=== PATIENT | male | born 1945 | race Caucasian/White ===

== ENCOUNTER 2018-03-10 10:23 | Outpatient (CLI) | payer MEDICARE ==
--- NOTE | 2018-03-10 11:55 | RAD ---
CERVICAL SPINE 5 VIEWS: HISTORY: Neck pain. FINDINGS: Operative fixation at the C5-6-7 levels. Anterior plate at the C6-7 level. Interbody fusion materia l markers are within the confines of the disk space. Straightening of the normal lordotic curvature. No abnormal translational motion upon flexion or extension. Vertebral body height and alignment ar e maintained. No acute fracture or dislocation. Prominent calcification over the carotid bifurcatio ns. IMPRESSION: 1. Postoperative changes lower cervical spine. No evidence of hardware complication. 2. Atherosclerosis. POS: [facility]
--- NOTE | 2018-03-10 12:34 | CT ---
HEAD CT WITHOUT CONTRAST: HISTORY: Headache. COMPARISON: 03/19/2015 FINDINGS: No parenchymal hemorrhage. No extraaxial hematoma. No midline shift. Basilar cisterns are patent. Brain volume is age appropriate. Cortical charles white matter differential is preserved. The ventricles and sulci are patent and symmetric. Adequate aeration of the sinuses and mastoid air cells. The calvarium is intact. IMPRESSION: No acute intracranial process. POS: [facility]
--- NOTE | 2018-03-10 12:48 | MRI ---
MRI CERVICAL SPINE: 03/10/2018 HISTORY: Headache for at least a year. History of prior cervical spine surgery. COMPARISON: 07/24/2013 FINDINGS: Metallic susceptibility artifact is seen anteriorly, at the C6-C7 level, related to anterior plate an d screws transfixing this level, as well as an intradiscal prosthesis, which was noted on radiographs of the cervical spine also obtained on this date. There is evidence of fusion of the C5 and C6 vert ebral bodies. There is mild heterogeneity of the bone marrow. The visualized base of the brain and the cervicomedullary junction have a normal MRI appearance. C2-C3: There is no disk bulge or disk herniation. The central spinal canal and neural foramina are patent. C3-C4: There are left facet hypertrophic changes. There is left-sided uncinate process hypertrophy. As noted on the prior exam, there is severe narrowing of the left neural foramen. The right neural foramen and central spinal canal are patent. C4-C5: There is again a mild broad-based disk osteophyte complex, greater centrally, which narrows t he ventral subarachnoid space and does result in slight flattening of the anterior central aspect of the spinal cord, but there is normal signal intensity present in the spinal cord. Facet degenerative changes are present, greater on the left. The right neural foramen is patent, but there is moderate left-sided neural foraminal narrowing present. C5-C6: There is posterior osteophyte formation, greater centrally, which narrows the ventral subarac hnoid space, resulting in slight mass effect on the central anterior aspect of the spinal cord. Ther e is mild right-sided neural foraminal narrowing. The left neural foramen is patent. C6-C7: There is posterior osteophyte formation, greater centrally, which results in overall generali zed narrowing of the central spinal canal, with a greater degree of narrowing involving the ventral s ubarachnoid space and mild mass effect on the anterior aspect of the spinal cord. There is mild incr eased T2 weighted signal intensity seen involving the right lateral aspect of the spinal cord, recording studio intern ior to the C6 vertebral body, which is likely attributable to myelomalacia. There is mild bilateral neural foraminal narrowing. C7-T1: There is a mild broad-based disk osteophyte complex, which results in narrowing of the ventra l subarachnoid space. There is no significant narrowing of either neural foramen. The paravertebral soft tissues are within normal limits. IMPRESSION: 1. Post surgical changes, cervical spine, with fusion at the C5-C6 level and evidence of anterior ce rvical fusion with plate and screws in place at the C6-C7 level. 2. Small focal area of myelomalacia within the right aspect of the spinal cord, at the level of the C6 vertebral body. 3. Mild multilevel degenerative changes with varying degrees of neural foraminal narrowing, as descr ibed above. POS: [facility]
== END 2018-03-10 10:24 | disposition home or self-care (01) ==
LOC: TBSIIMAG 10:23
PROVIDERS: ATTEND Neurological Surgery
DX: M50.30 Other cervical disc degeneration, unspecified cervical region (principal); R51 Headache; I70.90 Unspecified atherosclerosis; G95.89 Other specified diseases of spinal cord; M47.892 Other spondylosis, cervical region; M99.81 Other biomechanical lesions of cervical region; Z98.1 Arthrodesis status; Z98.890 Other specified postprocedural states
CPT/HCPCS: 70450; 72050; 72141

== ENCOUNTER 2019-07-12 21:26 | Inpatient (IN) | payer MEDICARE ==
[2019-07-12] MEDS ORDERED: Nitroglycerin 2% Ointment 1 INCH/1 GM Packet ONE (21:48)
[2019-07-12] MEDS ORDERED: Aspirin Chewable 81 MG TAB ONE (21:48)
--- NOTE | 2019-07-12 21:53 | RAD ---
XR Chest 1 View Portable HISTORY: Chest pain COMPARISON: None FINDINGS: The heart size is normal. The lungs are well expanded without focal areas of consolidation, pneumothorax or pleural effusions. IMPRESSION: No radiographic evidence of acute cardiopulmonary process.
[2019-07-12 22:19] LABS: #Basophils 0.1 thou/uL (0.0-0.2); #Eosinphils 0.2 thou/uL (0.0-0.7); #Lymphocytes 1.7 thou/uL (1.20-3.40); #Monocytes 0.9 thou/uL (0.11-0.59); #Neutrophils 9.1 thou/uL (1.40-6.50); %Basophils 0.4 % (0.0-1.0); %Eosinophils 1.3 % (0.0-10.0); %Lymphocytes 14.3 % (21.0-51.0); %Monocytes 7.5 % (0.0-10.0); %Neutrophils 76.5 % (42.0-75.0); Hemoglobin 15.6 g/dL (14.0-18.0); Mean Corpuscular HGB CONC 34.2 g/dL (32.0-36.0); Mean Corpuscular Hemoglobin 31.7 pg (27.0-31.0); Mean Corpuscular Volume 92.6 fL (78.0-98.0); Mean Platelet Volume 9.7 fL (7.4-10.4); Platelet Count 172 thou/uL (130-400); RBC Distribution Width 11.6 % (11.5-14.5); Red Blood Cell (RBC) Count 4.93 mill/uL (4.70-6.10); White Blood Cell (WBC) Count 11.9 thou/uL (4.8-10.8)
[2019-07-12 22:38] LABS: ALT (SGPT) 33 U/L (8-55); AST (SGOT) 154 U/L (5-34); Albumin 4.1 g/dL (3.4-4.8); Alkaline Phosphatase 104 U/L (40-110); Anion Gap 14 mmol/L (10-20); BUN (Urea Nitrogen) 21 mg/dL (8.4-25.7); Bilirubin, Total 0.8 mg/dL (0.2-1.2); Calc. Creatinine Clearance 0 mL/min (70-130); Calcium 9.3 mg/dL (7.8-10.44); Carbon Dioxide 25 mmol/L (23-31); Chloride 99 mmol/L (98-107); Estimated GFR-MDRD 52; Globulin 3.2 g/dL (2.4-3.5); Glucose 196 mg/dL (83-110); Potassium 3.6 mmol/L (3.5-5.1); Protein, Total 7.3 g/dL (5.8-8.1); Sodium 134 mmol/L (136-145)
[2019-07-12 23:08] LABS: CKMB 192.8 ng/mL (0-6.6)
[2019-07-12] MEDS ORDERED: Heparin 1,000 UNITS/ML VIAL ONE (23:22)
[2019-07-12] MEDS ORDERED: Heparin 25,000 units/D5W 500 ML ONE (23:22)
[2019-07-12] MEDS ORDERED: Lidocaine 1% (PF) 30 ML VIAL ONE (23:30)
[2019-07-12 23:34] LABS: Prothrombin Time 13.2 SEC (12.0-14.7)
[2019-07-12] MEDS ORDERED: Verapamil 5 MG/2 ML VIAL ONE (23:59)
[2019-07-12] MEDS ORDERED: Adenosine 6 MG/2 ML VIAL ONE (23:59)
[2019-07-12] MEDS ORDERED: Nitroglycerin 100MG/250ML BOT 250 ML ONE (23:59)
[2019-07-13] MEDS ORDERED: Heparin 10,000 UNITS/1 ML VIAL ONE (00:18)
[2019-07-13] MEDS ORDERED: Zolpidem Tartrate 5 MG TAB PO PRN (00:34)
[2019-07-13] MEDS ORDERED: Milk Of Magnesia 30 ML UDCUP PO PRN (00:34)
[2019-07-13] MEDS ORDERED: Acetaminophen/Codeine 30-300mg Tablet PO PRN (00:34)
[2019-07-13] MEDS ORDERED: Clopidogrel Bisulfate 300 MG TAB ONE (00:37)
[2019-07-13] MEDS ORDERED: Sodium Chloride 0.9% 1,000 ML IV SCH (00:45)
[2019-07-13 01:17] VITALS: BMI 30.4
[2019-07-13 03:43] LABS: #Eosinphils 0.1 thou/uL (0.0-0.7); #Lymphocytes 1.2 thou/uL (1.20-3.40); #Monocytes 0.9 thou/uL (0.11-0.59); #Neutrophils 10.4 thou/uL (1.40-6.50); %Basophils 0.1 % (0.0-1.0); %Eosinophils 0.4 % (0.0-10.0); %Lymphocytes 9.7 % (21.0-51.0); %Monocytes 6.9 % (0.0-10.0); Mean Corpuscular HGB CONC 33.3 g/dL (32.0-36.0); Mean Corpuscular Hemoglobin 30.6 pg (27.0-31.0); Mean Corpuscular Volume 91.9 fL (78.0-98.0); Mean Platelet Volume 9.3 fL (7.4-10.4); Platelet Count 158 thou/uL (130-400); RBC Distribution Width 11.7 % (11.5-14.5); Red Blood Cell (RBC) Count 4.57 mill/uL (4.70-6.10); White Blood Cell (WBC) Count 12.5 thou/uL (4.8-10.8)
[2019-07-13 04:01] LABS: Anion Gap 14 mmol/L (10-20); BUN (Urea Nitrogen) 17 mg/dL (8.4-25.7); Calc. Creatinine Clearance 91 mL/min (70-130); Calcium 8.9 mg/dL (7.8-10.44); Carbon Dioxide 21 mmol/L (23-31); Chloride 103 mmol/L (98-107); Estimated GFR-MDRD 80; Glucose 167 mg/dL (83-110); Potassium 3.6 mmol/L (3.5-5.1); Sodium 134 mmol/L (136-145)
[2019-07-13] MEDS: Carvedilol 3.125 MG TAB PO SCH ×2 (08:54→17:46)
[2019-07-13] MEDS: Aspirin Chewable 81 MG TAB PO SCH (08:54)
[2019-07-13] MEDS: Clopidogrel Bisulfate 75 MG TAB PO SCH (08:54)
[2019-07-13] MEDS ORDERED: Losartan 25 MG TAB PO SCH (09:00)
--- NOTE | 2019-07-13 15:51 | PRG ---
DATE OF SERVICE: 07/13/2019 SUBJECTIVE: Mr. Marin is doing well. He is post stent placement to the circumflex artery, 2.75 x 16 mm Synergy stent. No current complaints. OBJECTIVE: GENERAL: Patient is a pleasant male, who is in no acute distress. The patient appears their stated age. VITAL SIGNS: Blood pressure 136/72, pulse 77, and temperature afebrile. NEUROLOGIC: The patient is alert and oriented x3 with no focal neurologic deficits. HEENT: Sclerae without icterus. Mouth has moist mucous membranes with normal pallor. NECK: No JVD. Carotid upstroke brisk. No bruits bilaterally. LUNGS: Clear to auscultation with unlabored respirations. BACK: No scoliosis or kyphosis. CARDIAC: Regular rate and rhythm with normal S1 and S2. No S3 or S4 noted. No significant rubs, murmurs, thrills, or gallops noted throughout the precordium. PMI is not displaced. There is no parasternal heave. ABDOMEN: Soft, nontender, nondistended. No peritoneal signs present. No hepatosplenomegaly. No abnormal striae. EXTREMITIES: 2+ femoral and 2+ dorsalis pedis pulses. No cyanosis, clubbing, or edema. SKIN: No gross abnormalities. PERTINENT LABORATORY DATA: Hemoglobin 14.0. IMPRESSION: 1. Unstable angina. 2. Status post stent placement. 3. Diabetes mellitus. 4. Hyperlipidemia. RECOMMENDATIONS: We will restart his home medications. He would continue beta-azeb therapy, MARKEL inhibitor therapy, Plavix, aspirin, and statin therapy. Plan is to discharge in a.m. if the patient is stable. Job ID: [id number]
[2019-07-13] MEDS ORDERED: Insulin Regular 300 UNITS/3 ML VIAL SC PRN (16:20)
[2019-07-13] MEDS ORDERED: Dextrose 50% Abboject 50 ML SYRINGE IVP PRN (16:20)
[2019-07-13] MEDS ORDERED: Dextrose 5% in Water 1,000 ML IV PRN (16:20)
--- NOTE | 2019-07-13 17:31 | CON ---
DATE OF CONSULTATION: 07/13/2019 CHIEF COMPLAINT: Unstable angina. HISTORY OF PRESENT ILLNESS: Mr. Marin is a very pleasant 73-year-old gentleman with a history of diabetes mellitus, who recently presented with unstable angina. Chest pain had been noted for 12 to 24 hours prior to presentation. Initial troponin was 14. He was given an aspirin in addition to beta blockade. He also given nitroglycerin paste with blood pressure decreasing from 150 systolic down to 80 systolic. He was not given anticoagulation while in the emergency room. Given Mr. Marin was in the emergency room for an hour and a half with continued pain, decided to proceed with coronary angiography. PAST MEDICAL HISTORY: Includes PVC ablation in addition to diabetes mellitus, osteoarthritis, and hyperlipidemia. HOME MEDICATIONS: Include: 1. Atorvastatin. 2. Hydrochlorothiazide. 3. Tresiba. 4. Omeprazole. 5. Quinapril. 6. Clindamycin. 7. Insulin. ALLERGIES: ADHESIVES AND HYDROCODONE. REVIEW OF SYSTEMS: A 10-point review of systems is reviewed as above, otherwise negative. PHYSICAL EXAMINATION: GENERAL: Patient is a pleasant male, who is in no acute distress. The patient appears their stated age. VITAL SIGNS: Blood pressure 136/73, pulse 80, and respirations 20. NEUROLOGIC: The patient is alert and oriented x3 with no focal neurologic deficits. HEENT: Sclerae without icterus. Mouth has moist mucous membranes with normal pallor. NECK: No JVD. Carotid upstroke brisk. No bruits bilaterally. LUNGS: Clear to auscultation with unlabored respirations. BACK: No scoliosis or kyphosis. CARDIAC: Regular rate and rhythm with normal S1 and S2. No S3 or S4 noted. No significant rubs, murmurs, thrills, or gallops noted throughout the precordium. PMI is not displaced. There is no parasternal heave. ABDOMEN: Soft, nontender, nondistended. No peritoneal signs present. No hepatosplenomegaly. No abnormal striae. EXTREMITIES: 2+ femoral and 2+ dorsalis pedis pulses. No cyanosis, clubbing, or edema. SKIN: No gross abnormalities. DIAGNOSTIC STUDIES: EKG, normal sinus rhythm with nonspecific ST-T wave changes. IMPRESSION: 1. Unstable angina. 2. Diabetes mellitus. RECOMMENDATIONS: Mr. Marin's symptoms continue despite medical therapy. We, therefore, recommend urgent coronary angiography plus PCI. I discussed procedure in detail with Mr. Marin. Risks included, not limited to the following: I discussed the procedure in full detail with the patient. The risks of the procedure were also discussed. The risks of the procedure include but are not limited to the following: , stroke, ND, need for emergency surgery, loss of limb, bleeding, and infection, as well as a reaction to the dye causing kidney failure and needing long-term dialysis. I also discussed the risks of PCI to include all of the above including coronary dissection and perforation in addition to acute stent thrombosis and restenosis. All questions about the procedure were answered. Given the above, the patient agreed to proceed with coronary angiography and possible PCI. All questions answered. Given the above, the patient agreed to proceed with above procedure. Also discussed drug coated versus nondrug coated stent placement. There were no contraindications. We will proceed if needed. Job ID: [id number]
[2019-07-13] MEDS ORDERED: Atorvastatin Calcium 40 MG TAB PO SCH (21:00)
[2019-07-14 05:00] LABS: #Eosinphils 0.1 thou/uL (0.0-0.7); #Lymphocytes 1.9 thou/uL (1.20-3.40); #Neutrophils 6.3 thou/uL (1.40-6.50); %Basophils 0.3 % (0.0-1.0); %Eosinophils 0.9 % (0.0-10.0); %Lymphocytes 20.6 % (21.0-51.0); %Monocytes 10.7 % (0.0-10.0); %Neutrophils 67.5 % (42.0-75.0); Hemoglobin 14.5 g/dL (14.0-18.0); Mean Corpuscular HGB CONC 33.4 g/dL (32.0-36.0); Mean Corpuscular Volume 92.6 fL (78.0-98.0); Mean Platelet Volume 9.4 fL (7.4-10.4); Platelet Count 151 thou/uL (130-400); RBC Distribution Width 11.6 % (11.5-14.5); Red Blood Cell (RBC) Count 4.69 mill/uL (4.70-6.10); White Blood Cell (WBC) Count 9.3 thou/uL (4.8-10.8)
[2019-07-14 05:18] LABS: ALT (SGPT) 34 U/L (8-55); AST (SGOT) 108 U/L (5-34); Albumin 3.8 g/dL (3.4-4.8); Alkaline Phosphatase 89 U/L (40-110); Anion Gap 12 mmol/L (10-20); BUN (Urea Nitrogen) 16 mg/dL (8.4-25.7); Bilirubin, Total 1.1 mg/dL (0.2-1.2); Calc. Creatinine Clearance 72 mL/min (70-130); Calcium 9.4 mg/dL (7.8-10.44); Carbon Dioxide 27 mmol/L (23-31); Chloride 102 mmol/L (98-107); Estimated GFR-MDRD 61; Glucose 181 mg/dL (83-110); Potassium 3.6 mmol/L (3.5-5.1); Protein, Total 6.8 g/dL (5.8-8.1); Sodium 137 mmol/L (136-145)
[2019-07-14 07:31] VITALS: TEMP 97.2
[2019-07-14] MEDS: Carvedilol 3.125 MG TAB PO SCH (08:54)
[2019-07-14] MEDS: Aspirin Chewable 81 MG TAB PO SCH (08:54)
[2019-07-14] MEDS: Clopidogrel Bisulfate 75 MG TAB PO SCH (08:54)
[2019-07-14] MEDS ORDERED: Hydrochlorothiazide 25 MG TAB PO SCH (09:00)
[2019-07-14] MEDS ORDERED: Lisinopril 20 MG TAB PO SCH (09:00)
--- NOTE | 2019-07-14 09:52 | PDOC.CPN ---
- Subjective Date: 07/14/19 Time: 10:00 Interval history: Mr. Marin is awake, watching TV, spouse at bedside. No complaints, anxious to go home. Denies chest pain, shortness of breath, N/V/D. Ambulating in room , hallway without difficulty. Groin site without bleeding, pain, tenderness. Followed by Dr. Clark at [facility]. No overnight events on telemetry. - Review of Systems General: denies: fever/chills, weight/appetite/sleep changes, night sweats, fatigue Respiratory: denies: cough, congestion, shortness of breath, exercise intolerance Cardiovascular: denies: chest pain, palpitation, edema, paroxysmal nocturnal dyspnea, orthopnea Gastrointestinal: denies: nausea, vomiting, diarrhea, constipation, abd pain, GI bleeding Musculoskeletal: denies: pain, tenderness, stiffness, swelling, arthritis/ arthralgias - Objective Allergies/Adverse Reactions: Allergies Allergy/AdvReac Type Severity Reaction Status Date / Time adhesive Allergy Rash Verified 07/13/19 02:34 hydrocodone [From [place]] Allergy Verified 07/13/19 02:34 Visit Medications: Current Medications Acetaminophen/Codeine Phosphate (Tylenol #3) 2 tab PO Q4H PRN PRN Reason: Moderate Pain (4-6) Aspirin (Aspirin Chewable) 81 mg PO DAILY [facility] Last Admin: 07/14/19 08:54 Dose: 81 mg Atorvastatin Calcium (Lipitor) 40 mg PO HS [facility] Last Admin: 07/13/19 20:39 Dose: 40 mg Carvedilol (Coreg) 3.125 mg PO BID-[facility] Last Admin: 07/14/19 08:54 Dose: 3.125 mg Clopidogrel Bisulfate (Plavix) 75 mg PO DAILY [facility] Last Admin: 07/14/19 08:54 Dose: 75 mg Dextrose/Water (Dextrose 50%) 25 gm IVP PRN PRN PRN Reason: HYPOGLYCEMIA PROTOCOL Glucagon (Glucagon) 1 mg IM PRN PRN PRN Reason: HYPOGLYCEMIA PROTOCOL Hydrochlorothiazide (Hydrochlorothiazide) 25 mg PO DAILY [facility] Last Admin: 07/14/19 08:54 Dose: 25 mg Dextrose/Water (D5w) 1,000 mls @ 0 mls/hr IV INF PRN PRN Reason: HYPOGLYCEMIA PROTOCOL Insulin Human Regular (Humulin R) 0 units SC .MILD SLIDING PRN; Protocol PRN Reason: MILD SLIDING SCALE Lisinopril (Zestril) 20 mg PO DAILY [facility] Last Admin: 07/14/19 08:54 Dose: 20 mg Magnesium Hydroxide (Milk Of Magnesium) 30 ml PO Q12H PRN PRN Reason: Constipation Zolpidem Tartrate (Ambien) 5 mg PO HSPRN PRN PRN Reason: Insomnia Vital Signs & Weight: Vital Signs Temp Pulse Resp BP BP Pulse Ox 07/14/19 07:26 97.2 F L 98 18 113/69 94 L 07/14/19 03:51 99.1 F 88 18 137/78 97 Weight 193 lb 6.4 oz - Quality Measures Condition: Coronary Artery Disease CV meds: Beta Andry: Yes, MARKEL/ARB: Yes, Statin: Yes, ASA: Yes, Plavix/Effient/ Brilinta: Yes, Anticoagulant: No - Medication Contraindications No Anticoagulant reason: Treatment not indicated - Physical Exam General: alert & oriented x3, appears well, no apparent distress HEENT: mucus membranes moist Neck: supple neck, no JVD/HJR, no bruit Cardiac: regular rate and rhythm, no murmur, S1/S2 Lungs: clear to auscultation, normal breath sounds, no wheeze, rales, rhonchi Neuro: grossly intact Abdomen: unremarkable Extremities: no edema Skin: clear (right groin site s/ hematoma, oozing. Scant ecchymosis) - Labs Result Diagrams: 07/14/19 04:35 07/14/19 04:35 Troponin/CKMB CK-MB (CK-2) 192.8 ng/mL (0-6.6) H* 07/12/19 22:03 Troponin I 14.321 ng/mL (< 0.028) H* 07/12/19 22:03 - Telemetry Sinus rhythms and dysrhythmias: sinus rhythm - Assessment/Plan Assessment/Plan: 1. Unstable Angina-s/p LHC, moderate LM, LAD disease, severe 1V disease to circ , s/p ROWENA. No recurrent angina. 2. DM Type II 3. Hyperlipidemia-continue statin. 4. PVCs-s/p RFA Okay to discharge home on current medications, add NTG SL. He will need to follow-up with Dr. Derrick Clark in 2-3 weeks. See discharge dictation by Dr. Disla.
[2019-07-14 12:18] VITALS: BP 150/78
--- NOTE | 2019-07-14 16:53 | DIS ---
DATE OF ADMISSION: 07/13/2019 DATE OF DISCHARGE: 07/14/2019 Animal Husbandry Teacher taking care on this occasion is Dr. Bert Tejeda. Primary alkylation operator is Dr. Derrick Clark. DISCHARGE MEDICATIONS: 1. He is on dual anti-platelet therapy with clopidogrel and aspirin 81 mg a day. 2. Atorvastatin 40 mg a day. 3. Hydrochlorothiazide 25 mg a day. 4. Lisinopril 20 mg a day. FOLLOWUP: Dr. Derrick Clark. HOSPITAL COURSE: Mr. Marin is a 73-year-old gentleman who presented with acute coronary syndrome and unstable angina on 07/12/19. The patient was taken emergently to the cardiac catheterization lab by Dr. Tejeda and had successful stent implantation, drug-eluting stent, had one vessel disease, a successful stent to the circumflex, 2.75 x 16 Synergy stent post dilated to 3 mm. The patient did well following that. Doing well clinically. No chest pain or pressure. His troponin level was 14 on the . The patient is asymptomatic. He will be discharged as outlined above to follow up Dr. Derrick Clark. Job ID: [id number]
--- NOTE | 2019-07-16 08:55 | EKG ---
Test Reason : POST CATH Blood Pressure : / mmHG Vent. Rate : 066 BPM Atrial Rate : 066 BPM P-R Int : 180 ms QRS Dur : 132 ms QT Int : 424 ms P-R-T Axes : 049 -22 007 degrees QTc Int : 444 ms Sinus rhythm with Premature atrial complexes Right bundle branch block Inferior infarct , age undetermined cannot be excluded Abnormal ECG Confirmed by LAVINIA VALDEZ ([id number]) on 07/16/2019 8:54:54 AM Referred By: MORRIS Confirmed By:LAVINIA VALDEZ
--- NOTE | 2019-07-16 23:14 | PQF ---
DURAN DE ANDA RICARDO MD [id number] [id number] CLINICAL DOCUMENTATION CLARIFICATION FORM: POST DISCHARGE Addendum to original discharge summary date: ____ Late entry note date: __ DATE:07/16/2019 ATTN:ANATOLIY BEE MD Please exercise your independent, professional judgment in responding to the clarification form. Clinical indicators are provided on the bottom of this form for your review Please check appropriate box(s) to clarify if the following diagnosis has been ruled in or ruled out: Myocardial infarction [ ] Ruled in diagnosis [ ] Continue to treat [ ] Resolved [ ] Ruled out diagnosis [ ] Cannot rule out diagnosis [ ] Other diagnosis [ ] Unable to determine For continuity of documentation, please document condition throughout progress notes and discharge summary. Thank You. CLINICAL INDICATORS - SIGNS / SYMPTOMS / LABS Chest pain described as uncomfortable -Documented in ED on 07/13 by Kirby Loya Historian reports chest pain upper radiation to the arm and radiation to shoulders-Documented in ED on 07/13 by Kirby Loya 12 lead EKG shows , sinus bradycardia -Documented in ED on 07/13 by Kirby Loya Complete right bundle branch blocks-Documented in ED on 07/13 by Kirby Loya Myocardial Infarction-Documented in ED on 07/13 by Kirby Loya Acute coronary syndrome and unstable angina -Documented in Discharge summary on 07/14 by Umair Disla MD RISK FACTORS Acute coronary syndrome and unstable angina -Documented in Discharge summary on 07/14 by Umair Disla MD TREATMENTS Aspirin 81 mg-Documented in Medication snapshot The patient was taken emergently to the cardiac catheterization lab by Nikhil Hutchinson and had successful stent implantation drug-eleting stent-Documented in Discharge summary on 07/14 by Umair Disla MD SAP Finish Machine Tender Crystal Reports Winform Viewer (This form is maintained as a part of the permanent medical record) 2014 [employer] All Rights Reserved [email or web address] [phone] [phone]
== END 2019-07-14 13:15 | disposition home or self-care (01) | DRG 247 ==
LOC: ERS 21:26 → SDC/OP 23:29 → MERGE 07-13 00:08 → CCU 07-13 00:08 → 2NO 07-13 14:40
PROVIDERS: ADMIT Internal Medicine Cardiovascular Disease; ATTEND Internal Medicine Cardiovascular Disease
PROC: 4A023N7 Measurement of Cardiac Sampling and Pressure, Left Heart, Percutaneous Approach (ICD-10-PCS; principal; 2019-07-12)
PROC: 027034Z Dilation of Coronary Artery, One Artery with Drug-eluting Intraluminal Device, Percutaneous Approach (ICD-10-PCS; 2019-07-12)
PROC: B2111ZZ Fluoroscopy of Multiple Coronary Arteries using Low Osmolar Contrast (ICD-10-PCS; 2019-07-12)
PROC: B2151ZZ Fluoroscopy of Left Heart using Low Osmolar Contrast (ICD-10-PCS; 2019-07-12)
DX: I24.9 Acute ischemic heart disease, unspecified (principal); I25.110 Atherosclerotic heart disease of native coronary artery with unstable angina pectoris; E11.9 Type 2 diabetes mellitus without complications; E78.5 Hyperlipidemia, unspecified; I49.3 Ventricular premature depolarization; M19.90 Unspecified osteoarthritis, unspecified site; Z88.5 Allergy status to narcotic agent; Z91.048 Other nonmedicinal substance allergy status
CPT/HCPCS: 36415; 36416; 71045; 76942; 80048; 80053; 82553; 84484; 85025; 85347; 85610; 85730; 92928; 93005; 93010; 93458; 93798; 96361; 96374; 96375; C1769; C1887; C9600; J0153; J1644; J1815; J2001

== ENCOUNTER 2021-05-21 10:43 | Outpatient (CLI) | payer MEDICARE ==
[2021-05-21 12:29] LABS: Hemoglobin 13.4 g/dL (13.5-17.5); Mean Corpuscular HGB CONC 32.5 g/dL (32.0-36.0); Mean Corpuscular Hemoglobin 29.9 pg (27.0-33.0); Mean Platelet Volume 12.3 fl (7.4-10.4); Platelet Count 172 10x3/uL (150-450); RBC Distribution Width 13.6 % (11.5-14.5); Red Blood Cell (RBC) Count 4.48 10x6/uL (4.32-5.72); White Blood Cell (WBC) Count 7.9 10x3/uL (3.5-10.5)
[2021-05-21 12:56] LABS: Chloride 111 mmol/L (98-107); Sodium 143 mmol/L (136-145)
[2021-05-21 13:22] LABS: Anion Gap 12 mmol/L (10-20); BUN (Urea Nitrogen) 21 mg/dL (8.4-25.7); Calc. Creatinine Clearance 0 mL/min (70-130); Calcium 8.7 mg/dL (7.8-10.44); Carbon Dioxide 24 mmol/L (23-31); Glucose 88 mg/dL (83-110)
[2021-05-22 11:35] LABS: SARS-CoV-2 PCR by NAA Not Detected (NotDetected)
== END 2021-05-21 10:44 | disposition home or self-care (01) ==
LOC: LABBT 10:43
PROVIDERS: ATTEND Thoracic Surgery (Cardiothoracic Vascular Surgery)
DX: Z01.812 Encounter for preprocedural laboratory examination (principal); Z20.822 Contact with and (suspected) exposure to COVID-19
CPT/HCPCS: 80048; 85027; 86850; 86900; 86901; U0003; U0005

== ENCOUNTER 2021-05-21 11:30 | Inpatient (IN) | payer MEDICARE ==
[2021-05-21 12:29] LABS: Hemoglobin 13.4 g/dL (13.5-17.5); Mean Corpuscular HGB CONC 32.5 g/dL (32.0-36.0); Mean Corpuscular Hemoglobin 29.9 pg (27.0-33.0); Mean Platelet Volume 12.3 fl (7.4-10.4); Platelet Count 172 10x3/uL (150-450); RBC Distribution Width 13.6 % (11.5-14.5); Red Blood Cell (RBC) Count 4.48 10x6/uL (4.32-5.72); White Blood Cell (WBC) Count 7.9 10x3/uL (3.5-10.5)
[2021-05-21 12:56] LABS: Chloride 111 mmol/L (98-107); Sodium 143 mmol/L (136-145)
[2021-05-21 13:22] LABS: Anion Gap 12 mmol/L (10-20); BUN (Urea Nitrogen) 21 mg/dL (8.4-25.7); Calc. Creatinine Clearance 0 mL/min (70-130); Calcium 8.7 mg/dL (7.8-10.44); Carbon Dioxide 24 mmol/L (23-31); Glucose 88 mg/dL (83-110)
[2021-05-22 11:35] LABS: SARS-CoV-2 PCR by NAA Not Detected (NotDetected)
[2021-05-26] MEDS ORDERED: ceFAZolin 2 GM/DEX 5% 100 ML BAG ONE (06:17)
[2021-05-26] MEDS ORDERED: Albumin 5% 500 ML ONE (06:25)
[2021-05-26] MEDS ORDERED: Fentanyl 250 MCG/5 ML VIAL ONE ×2 (06:37)
[2021-05-26] MEDS ORDERED: Midazolam HCl 5 mg/5 ml Vial ONE (06:38)
[2021-05-26] MEDS ORDERED: Heparin 10,000 UNITS/1 ML VIAL 30,000 UNITS in Sodium Chloride 0.9% 1,000 ML FS SCH (07:00)
[2021-05-26] MEDS ORDERED: Cardioplegic Soln 1,000 ML BAG ONE (07:43)
[2021-05-26] MEDS ORDERED: Mannitol 12.5 GM/50 ML ONE (07:43)
[2021-05-26] MEDS ORDERED: Ondansetron PF 4 MG/2 ML Vial ONE (07:43)
[2021-05-26] MEDS ORDERED: Lidocaine 2% PF 100 mg/5 ml Syringe ONE (07:43)
[2021-05-26] MEDS ORDERED: Aminocaproic Acid 5 GM/20 ML VIAL ONE (07:43)
[2021-05-26] MEDS ORDERED: Lidocaine 1% PF 5 ML VIAL ONE (07:43)
[2021-05-26] MEDS ORDERED: Heparin 30,000 units/30 ml VIAL ONE (07:43)
[2021-05-26] MEDS ORDERED: Magnesium Sulfate 1 GM/2 ML VIAL ONE (07:43)
[2021-05-26] MEDS ORDERED: Dexamethasone 20 MG/5 ML VIAL ONE (07:43)
[2021-05-26] MEDS ORDERED: Heparin 5,000 UNITS/ML VIAL ONE (07:43)
[2021-05-26] MEDS ORDERED: Rocuronium Bromide 10 MG/ML (10ML VIAL) ONE (07:43)
[2021-05-26] MEDS ORDERED: Thrombin 5000 UNITS/5 ML VIAL ONE (07:43)
[2021-05-26] MEDS ORDERED: Potassium Chloride 60 MEQ/30 ML VIAL ONE (07:43)
[2021-05-26] MEDS ORDERED: Sodium Bicarb 50 MEQ/50 ML Abboject 8.4% SYRINGE ONE (07:43)
[2021-05-26] MEDS ORDERED: Papaverine 60 MG/2 ML VIAL ONE (07:43)
[2021-05-26] MEDS ORDERED: Protamine Sulfate 250 MG/25 ML VIAL ONE (07:43)
[2021-05-26] MEDS ORDERED: Phenylephrine 10 MG/ML VIAL ONE (07:43)
[2021-05-26] MEDS ORDERED: PROPOFOL 200 MG/20 ML VIAL ONE (07:43)
[2021-05-26] MEDS ORDERED: Calcium Chloride 1 GM/10 ML Abboject SYRINGE ONE (07:43)
[2021-05-26] MEDS ORDERED: Insulin Regular 300 UNITS/3 ML VIAL ONE (08:07)
[2021-05-26] MEDS ORDERED: Potassium Chloride 20 MEQ/100 ML PREMIX BAG IVPB PRN (11:04)
[2021-05-26] MEDS ORDERED: Nitroglycerin 50 MG/250 ML BOT 250 ML IVPB PRN (11:04)
[2021-05-26] MEDS ORDERED: Guaifenesin DM 100-10/5 ML UDCUP PO PRN (11:04)
[2021-05-26] MEDS ORDERED: DOPamine 400 MG/D5W 250 ML 250 ML IVPB PRN (11:04)
[2021-05-26] MEDS ORDERED: Morphine 2 MG/ML VIAL SLOW IVP PRN (11:04)
[2021-05-26] MEDS ORDERED: hydrALAZINE 20 MG/ML VIAL SLOW IVP PRN (11:04)
[2021-05-26] MEDS ORDERED: Lactated Ringer's 1,000 ML IV SCH (11:04)
[2021-05-26] MEDS ORDERED: Promethazine HCl 25 MG/ML VIAL IM PRN (11:04)
[2021-05-26] MEDS ORDERED: Fentanyl 100 MCG/2 ML VIAL SLOW IVP PRN ×2 (11:04)
[2021-05-26] MEDS ORDERED: Post-Op Insulin Drip Protocol IVPB ONE (11:04)
[2021-05-26] MEDS ORDERED: Hetastarch 6% 500 ML 500 ML IVPB PRN (11:04)
[2021-05-26] MEDS ORDERED: traMADol HCl 50 MG TAB PO PRN (11:04)
[2021-05-26] MEDS ORDERED: Acetaminophen 325 MG TAB PO PRN (11:04)
[2021-05-26] MEDS ORDERED: Mag-Al 1200 mg/1200 mg/30 ML UDCUP PO PRN (11:04)
[2021-05-26] MEDS ORDERED: Norepinephrine 8 MG/0.9% NS 250 ML IVPB PRN (11:04)
[2021-05-26] MEDS ORDERED: Ondansetron PF 4 MG/2 ML Vial IVP PRN (11:04)
[2021-05-26] MEDS ORDERED: niCARdipine 25 MG in Sodium Chloride 0.9% 250 ML 250 ML IVPB PRN (11:04)
[2021-05-26] MEDS ORDERED: Bisacodyl 5 MG TAB PO PRN (11:04)
[2021-05-26] MEDS ORDERED: Bisacodyl 10 MG SUPP PR PRN (11:04)
[2021-05-26] MEDS ORDERED: HUMULIN R 100 UNITS in Sodium Chloride 0.9% 100 ML IVPB SCH (11:45)
[2021-05-26] MEDS ORDERED: Lantus 1000 UNITS/10 ML VIAL SC PRN (11:45)
[2021-05-26] MEDS ORDERED: Dextrose 5% in Water 1,000 ML IV PRN (11:45)
[2021-05-26] MEDS ORDERED: Dextrose 50% Abboject 50 ML SYRINGE SLOW IVP PRN (11:45)
[2021-05-26] MEDS ORDERED: Morphine 4 MG/ML VIAL ONE (12:01)
[2021-05-26 12:13] LABS: Actual Bicarbonate (HCO3a) 20.2 mEq/L (22-28); Base Excess (BEa) -4.2 mEq/L (-2.0 to +3.0); CO2 Tension 34.5 mmHg (35.0-45.0); Calcium, Ionized (arterial) 1.14 mmol/L (1.12-1.30); Carboxyhemoglobin (COHb) 0.3 gm% (0.0-3.0); Hemoglobin (Hb) 11.5 g/dL (14.0-18.0); O2 Tension (PaO2), arterial 165.4 mmHg (> 70.0); Potassium - ABG Lab 3.85 mmol/L (3.70-5.30); Puncture Site ARTLINE; pH, Arterial 7.39 (7.35-7.45)
[2021-05-26 12:20] LABS: ALV-art Gradient 147.975 mmHg (0-20)
[2021-05-26 12:40] LABS: INR-International Normal Ratio 1.4; Prothrombin Time 17.6 sec (12.0-14.7)
[2021-05-26 12:41] LABS: PTT 38.3 sec (22.9-36.1)
[2021-05-26 12:45] LABS: Anion Gap 8 mmol/L (10-20); BUN (Urea Nitrogen) 14 mg/dL (8.4-25.7); Calc. Creatinine Clearance 80 mL/min (70-130); Carbon Dioxide 22 mmol/L (23-31); Chloride 116 mmol/L (98-107); Glucose 104 mg/dL (83-110); Sodium 142 mmol/L (136-145)
[2021-05-26 12:55] LABS: #Eosinphils 0.1 thou/uL (0.0-0.7); #Lymphocytes 1.2 thou/uL (1.20-3.40); #Monocytes 0.4 thou/uL (0.11-0.59); #Neutrophils 11.3 thou/uL (1.40-6.50); %Basophils 0.2 % (0.0-1.0); %Eosinophils 0.5 % (0.0-10.0); %Lymphocytes 8.9 % (21.0-51.0); %Monocytes 3.4 % (0.0-10.0); Band 30 % (5-11); Burr Cells SLIGHT = 2-5 cells (100X) (0-1/hpf); Hemoglobin 11.1 g/dL (14.0-18.0); Lymphocytes 11 % (21-51); MDiff Complete? YES; Mean Corpuscular HGB CONC 34.6 g/dL (32.0-36.0); Mean Corpuscular Volume 92.5 fL (78.0-98.0); Mean Platelet Volume 8.8 fL (7.4-10.4); Monocytes 3 % (0-10); Neutrophil 56 % (42-75); Platelet Count 103 thou/uL (130-400); Platelet Morphology Comment Appears Decreased; Polychromasia SLIGHT = 2-3 cells (100X) (0-2/hpf); RBC Distribution Width 12.3 % (11.5-14.5); Red Blood Cell (RBC) Count 3.48 mill/uL (4.70-6.10)
[2021-05-26] MEDS ORDERED: Morphine 4 MG/ML VIAL SLOW IVP SCH (13:00)
[2021-05-26] MEDS ORDERED: Morphine 4 MG/ML VIAL SLOW IVP PRN (13:00)
[2021-05-26] MEDS: ceFAZolin Sodium/D5W 2 GM in Premix Bag 1 BAG IVPB SCH ×2 (14:21→21:45)
[2021-05-26] MEDS ORDERED: HYDROcodone/Acetaminophen 7.5/325 mg Tablet PO PRN (16:35)
[2021-05-26 17:16] LABS: Hemoglobin 11.1 g/dL (14.0-18.0)
[2021-05-26 17:31] LABS: Potassium 3.9 mmol/L (3.5-5.1)
[2021-05-26] MEDS: Lactated Ringer's 1,000 ML IV SCH (18:42)
[2021-05-26] MEDS: HYDROcodone/Acetaminophen 7.5/325 mg Tablet PO PRN (20:07)
[2021-05-26] MEDS: Atorvastatin Calcium 20 MG TAB PO SCH (20:09)
[2021-05-26] MEDS: Insulin Regular 300 UNITS/3 ML VIAL SC PRN (20:22)
[2021-05-26] MEDS ORDERED: Famotidine/PF 20 mg/2ml Vial SLOW IVP SCH (21:00)
[2021-05-27] MEDS: Insulin Regular 300 UNITS/3 ML VIAL SC PRN ×2 (00:08→19:48)
[2021-05-27] MEDS: HYDROcodone/Acetaminophen 7.5/325 mg Tablet PO PRN ×4 (00:14→18:41)
[2021-05-27] MEDS: Lactated Ringer's 1,000 ML IV SCH ×2 (01:05→09:49)
[2021-05-27 05:05] LABS: #Lymphocytes 1.1 thou/uL (1.20-3.40); #Monocytes 1.1 thou/uL (0.11-0.59); #Neutrophils 11.2 thou/uL (1.40-6.50); %Lymphocytes 8.1 % (21.0-51.0); %Neutrophils 83.9 % (42.0-75.0); Hemoglobin 10.2 g/dL (14.0-18.0); Mean Corpuscular HGB CONC 33.7 g/dL (32.0-36.0); Mean Corpuscular Hemoglobin 31.8 pg (27.0-31.0); Mean Corpuscular Volume 94.4 fL (78.0-98.0); Mean Platelet Volume 10.2 fL (7.4-10.4); Platelet Count 108 thou/uL (130-400); RBC Distribution Width 12.5 % (11.5-14.5); Red Blood Cell (RBC) Count 3.19 mill/uL (4.70-6.10); White Blood Cell (WBC) Count 13.3 thou/uL (4.8-10.8)
[2021-05-27] MEDS: ceFAZolin Sodium/D5W 2 GM in Premix Bag 1 BAG IVPB SCH (05:07)
[2021-05-27 05:12] LABS: Anion Gap 10 mmol/L (10-20); BUN (Urea Nitrogen) 20 mg/dL (8.4-25.7); Calc. Creatinine Clearance 61 mL/min (70-130); Calcium 8.1 mg/dL (7.8-10.44); Carbon Dioxide 22 mmol/L (23-31); Chloride 114 mmol/L (98-107); Glucose 116 mg/dL (83-110); Potassium 3.7 mmol/L (3.5-5.1); Sodium 142 mmol/L (136-145)
[2021-05-27] MEDS: Potassium Chloride 10 MEQ in Premix Bag 1 BAG IVPB SCH ×2 (06:08→07:14)
[2021-05-27] MEDS ORDERED: Dextrose 50% Abboject 50 ML SYRINGE SLOW IVP PRN (06:42)
[2021-05-27] MEDS ORDERED: Dextrose 5% in Water 1,000 ML IV PRN (06:42)
[2021-05-27] MEDS ORDERED: Aspirin 325 MG TAB PO SCH (09:00)
[2021-05-27] MEDS: Polyethylene Glycol 3350 17 GM Packet PO SCH (09:37)
[2021-05-27] MEDS ORDERED: Sodium Chloride 0.9% 500 ML IV SCH (16:15)
[2021-05-27] MEDS: Atorvastatin Calcium 20 MG TAB PO SCH (19:42)
[2021-05-28] MEDS: Lactated Ringer's 1,000 ML IV SCH (04:33)
[2021-05-28 05:20] LABS: #Eosinphils 0.1 thou/uL (0.0-0.7); #Lymphocytes 1.2 thou/uL (1.20-3.40); #Monocytes 1.4 thou/uL (0.11-0.59); #Neutrophils 10.1 thou/uL (1.40-6.50); %Eosinophils 0.6 % (0.0-10.0); %Lymphocytes 9.5 % (21.0-51.0); %Monocytes 10.7 % (0.0-10.0); %Neutrophils 79.2 % (42.0-75.0); Hemoglobin 9.5 g/dL (14.0-18.0); Mean Corpuscular HGB CONC 32.8 g/dL (32.0-36.0); Mean Corpuscular Hemoglobin 30.9 pg (27.0-31.0); Mean Corpuscular Volume 94.4 fL (78.0-98.0); Mean Platelet Volume 9.1 fL (7.4-10.4); Platelet Count 99 thou/uL (130-400); RBC Distribution Width 12.6 % (11.5-14.5); Red Blood Cell (RBC) Count 3.07 mill/uL (4.70-6.10); White Blood Cell (WBC) Count 12.7 thou/uL (4.8-10.8)
[2021-05-28] MEDS: HYDROcodone/Acetaminophen 7.5/325 mg Tablet PO PRN (05:45)
[2021-05-28 06:43] LABS: Anion Gap 8 mmol/L (10-20); BUN (Urea Nitrogen) 24 mg/dL (8.4-25.7); Calc. Creatinine Clearance 67 mL/min (70-130); Calcium 8.2 mg/dL (7.8-10.44); Carbon Dioxide 24 mmol/L (23-31); Chloride 107 mmol/L (98-107); Glucose 200 mg/dL (83-110); Potassium 3.9 mmol/L (3.5-5.1); Sodium 135 mmol/L (136-145)
[2021-05-28] MEDS: Insulin Regular 300 UNITS/3 ML VIAL SC PRN ×4 (06:59→21:05)
[2021-05-28] MEDS ORDERED: Nitroglycerin 0.4 MG TAB (25 Tab Bottle) SL PRN (07:01)
[2021-05-28] MEDS ORDERED: Dextrose 50% Abboject 50 ML SYRINGE SLOW IVP PRN (07:30)
[2021-05-28] MEDS ORDERED: Dextrose 5% in Water 1,000 ML IV PRN (07:30)
[2021-05-28] MEDS: Aspirin 81 mg Enteric Coated Tablet PO SCH (09:26)
[2021-05-28] MEDS: Polyethylene Glycol 3350 17 GM Packet PO SCH (09:26)
[2021-05-28 12:37] LABS: Actual Bicarbonate (HCO3a) 23.8 mEq/L (22-28); Analyzer IN Cardio OR; Base Excess (BEa) -0.5 mEq/L (-2.0 to +3.0); CO2 Tension 37.5 mmHg (35.0-45.0); Carboxyhemoglobin (COHb) 0.7 gm% (0.0-3.0); Hemoglobin (Hb) 8.8 g/dL (14.0-18.0); O2 Tension (PaO2), arterial 412.4 mmHg (> 70.0); Potassium - ABG Lab 3.75 mmol/L (3.70-5.30); pH, Arterial 7.42 (7.35-7.45)
[2021-05-28 12:37] LABS: Actual Bicarbonate (HCO3a) 24.2 mEq/L (22-28); Analyzer IN Cardio OR; CO2 Tension 42.2 mmHg (35.0-45.0); Calcium, Ionized (arterial) 0.97 mmol/L (1.12-1.30); Carboxyhemoglobin (COHb) 0.2 gm% (0.0-3.0); Hemoglobin (Hb) 8.3 g/dL (14.0-18.0); Potassium - ABG Lab 4.05 mmol/L (3.70-5.30); pH, Arterial 7.38 (7.35-7.45)
[2021-05-28 12:37] LABS: Actual Bicarbonate (HCO3a) 21.8 mEq/L (22-28); Analyzer IN Cardio OR; Base Excess (BEa) -1.8 mEq/L (-2.0 to +3.0); CO2 Tension 32.2 mmHg (35.0-45.0); Calcium, Ionized (arterial) 1.16 mmol/L (1.12-1.30); Carboxyhemoglobin (COHb) 0.5 gm% (0.0-3.0); O2 Tension (PaO2), arterial 100.5 mmHg (> 70.0); Potassium - ABG Lab 3.78 mmol/L (3.70-5.30); pH, Arterial 7.45 (7.35-7.45)
[2021-05-28 12:38] LABS: Actual Bicarbonate (HCO3a) 18.2 mEq/L (22-28); Analyzer IN Cardio OR; Base Excess (BEa) -5.7 mEq/L (-2.0 to +3.0); CO2 Tension 30.8 mmHg (35.0-45.0); Calcium, Ionized (arterial) 1.12 mmol/L (1.12-1.30); Carboxyhemoglobin (COHb) 0.2 gm% (0.0-3.0); Hemoglobin (Hb) 11.8 g/dL (14.0-18.0); O2 Tension (PaO2), arterial 467.3 mmHg (> 70.0); Potassium - ABG Lab 3.21 mmol/L (3.70-5.30); Puncture Site Arterial Line; pH, Arterial 7.39 (7.35-7.45)
[2021-05-28 12:38] LABS: Actual Bicarbonate (HCO3a) 20.4 mEq/L (22-28); Analyzer IN Cardio OR; Base Excess (BEa) -4.3 mEq/L (-2.0 to +3.0); Calcium, Ionized (arterial) 1.11 mmol/L (1.12-1.30); Carboxyhemoglobin (COHb) 0.4 gm% (0.0-3.0); Hemoglobin (Hb) 11.4 g/dL (14.0-18.0); O2 Tension (PaO2), arterial 153.9 mmHg (> 70.0); Potassium - ABG Lab 3.31 mmol/L (3.70-5.30); pH, Arterial 7.37 (7.35-7.45)
[2021-05-28 12:39] LABS: Puncture Site Arterial Line
[2021-05-28 12:39] LABS: Puncture Site Arterial Line
[2021-05-28 12:40] LABS: Puncture Site Arterial Line
[2021-05-28 12:40] LABS: Puncture Site Arterial Line
[2021-05-28] MEDS ORDERED: Carvedilol 3.125 MG TAB PO SCH (17:45)
[2021-05-28] MEDS: Enoxaparin Sodium 40 MG/0.4 ML SYRINGE SC SCH (21:03)
[2021-05-28] MEDS: Atorvastatin Calcium 20 MG TAB PO SCH (21:03)
[2021-05-29] MEDS: Insulin Regular 300 UNITS/3 ML VIAL SC PRN ×3 (06:07→17:46)
[2021-05-29] MEDS: Lantus 1000 UNITS/10 ML VIAL SC SCH (09:53)
[2021-05-29] MEDS: Furosemide 40 MG TAB PO SCH (09:53)
[2021-05-29] MEDS: Polyethylene Glycol 3350 17 GM Packet PO SCH (09:53)
[2021-05-29] MEDS: Potassium Chloride 10 MEQ TAB PO SCH (09:53)
[2021-05-29] MEDS: Aspirin 81 mg Enteric Coated Tablet PO SCH (09:53)
[2021-05-29] MEDS: Carvedilol 3.125 MG TAB PO SCH ×2 (09:53→16:19)
[2021-05-29] MEDS ORDERED: Magnesium Citrate 300 ML BOT PO SCH (17:30)
[2021-05-29] MEDS ORDERED: Lantus 1000 UNITS/10 ML VIAL SC SCH (21:00)
[2021-05-29] MEDS: Enoxaparin Sodium 40 MG/0.4 ML SYRINGE SC SCH (22:02)
[2021-05-29] MEDS: Atorvastatin Calcium 20 MG TAB PO SCH (22:03)
[2021-05-30 07:38] VITALS: TEMP 98.3
[2021-05-30] MEDS: Furosemide 40 MG TAB PO SCH (08:49)
[2021-05-30] MEDS: Aspirin 81 mg Enteric Coated Tablet PO SCH (08:49)
[2021-05-30] MEDS: Carvedilol 3.125 MG TAB PO SCH (08:50)
[2021-05-30] MEDS: Lantus 1000 UNITS/10 ML VIAL SC SCH (08:50)
[2021-05-30] MEDS: Polyethylene Glycol 3350 17 GM Packet PO SCH (08:50)
[2021-05-30] MEDS: Potassium Chloride 10 MEQ TAB PO SCH (08:50)
[2021-05-30 15:00] VITALS: BP 111/70
== END 2021-05-30 11:45 | disposition home or self-care (01) | DRG 236 ==
LOC: SURG A 05-26 05:50 → CCU 05-26 10:59 → 2NO 05-28 10:20
PROVIDERS: ADMIT Thoracic Surgery (Cardiothoracic Vascular Surgery); ATTEND Thoracic Surgery (Cardiothoracic Vascular Surgery)
PROC: 02100Z9 Bypass Coronary Artery, One Artery from Left Internal Mammary, Open Approach (ICD-10-PCS; principal; 2021-05-26)
PROC: 021109W Bypass Coronary Artery, Two Arteries from Aorta with Autologous Venous Tissue, Open Approach (ICD-10-PCS; 2021-05-26)
PROC: 06BQ3ZZ Excision of Left Saphenous Vein, Percutaneous Approach (ICD-10-PCS; 2021-05-26)
PROC: 5A1221Z Performance of Cardiac Output, Continuous (ICD-10-PCS; 2021-05-26)
DX: I25.10 Atherosclerotic heart disease of native coronary artery without angina pectoris (principal); I31.9 Disease of pericardium, unspecified; E11.9 Type 2 diabetes mellitus without complications; M19.90 Unspecified osteoarthritis, unspecified site; Z20.822 Contact with and (suspected) exposure to COVID-19; I10 Essential (primary) hypertension; K21.9 Gastro-esophageal reflux disease without esophagitis; E78.2 Mixed hyperlipidemia; E78.00 Pure hypercholesterolemia, unspecified; Z79.82 Long term (current) use of aspirin; I25.2 Old myocardial infarction; Z79.899 Other long term (current) drug therapy; Z90.49 Acquired absence of other specified parts of digestive tract
CPT/HCPCS: 36415; 36416; 36430; 71045; 80048; 82805; 85025; 85027; 85610; 85730; 86850; 86900; 86901; 93005; 93010; 93798; 94002; 97139; C1776; J1100; J1642; J1644; J1650; J1815; J2001; J2150; J2250; J2270; J2370; J2405; J2440; J2704; J2720; J3010; J3370; J3475; J3480; J7030; J7120; P9045; S0017; S0028; U0003; U0005

== ENCOUNTER 2023-07-05 08:37 | Outpatient (CLI) | payer MEDICARE ==
[2023-07-05] MEDS ORDERED: Iopamidol-370 76% 500 ML MDV (1 ML CHARGE) ONE (10:28)
== END 2023-07-05 08:38 | disposition home or self-care (01) ==
LOC: BICCT 08:37
PROVIDERS: ATTEND Neurological Surgery
DX: M47.12 Other spondylosis with myelopathy, cervical region (principal); I65.23 Occlusion and stenosis of bilateral carotid arteries; Z98.1 Arthrodesis status; Z98.890 Other specified postprocedural states
CPT/HCPCS: 70498; 72050; 72141; 82565